=== PATIENT | female | born 1995 | race Caucasian/White ===

== ENCOUNTER → 2023-10-20 | Outpatient (CLI) | payer OTHER ==
--- NOTE | 2023-11-30 09:43 | FL ---
Gerda Wild : 1995 EXAMINATION TYPE: FL barium swallow w video DATE OF EXAM: 10/20/2023 CLINICAL HISTORY: 28-year-old female R13.14, pharyngeal esophageal dysphagia, globus sensation. Dysph agia. TECHNIQUE: Deglutition study is performed utilizing thin liquid barium, honey and nectar thick liqui d barium, barium thick pudding, and barium coated cracker. COMPARISON: None. Total fluoroscopy time: 1 minute. Total images: None. Real-time fluoroscopy support was provided to speech pathology. Total DAP: 5 mGycm2. FINDINGS: The oral and pharyngeal phases show satisfactory initiation and propagation with all modalities teste d. Normal mastication is seen with solid modalities tested. There is no evidence of penetration or aspiration with any modality tested. No significant pharyngeal residue was appreciated. IMPRESSION: Normal dynamic swallow study. Please refer to speech therapist notes for further details if necessary.
== END | disposition home or self-care (01) ==
LOC: RADFLMAIN 10:41
PROVIDERS: ATTEND Family Medicine
DX: R13.14 Dysphagia, pharyngoesophageal phase (principal)
CPT/HCPCS: 74230